=== PATIENT | male | born 1995 | race Asian ===

== ENCOUNTER 2022-01-13 09:16 | Emergency (ER) | payer SELFPAY ==
[~2022-01-13] VITALS: Ht 175.3 cm; Wt 80.0 kg
[2022-01-13] MEDS ORDERED: ASPirin 81 mg TAB PO ONE (09:45)
[2022-01-13 09:53] LABS: Basophils # (auto) 0 10 ^3/uL (0-0.2); Basophils % (auto) 0.7 % (0.0-2.0); Eosinophils # (auto) 0.1 10 ^3/uL (0-0.8); Eosinophils % (auto) 1.6 % (0.0-7.0); Hematocrit 43.5 % (41.0-53.0); Hemoglobin 14.8 g/dL (13.5-17.5); Lymphocytes # (auto) 1.5 10 ^3/uL (0.4-5.4); Lymphocytes % (auto) 31.2 % (10.0-50.0); Mean Corpuscular Hemoglobin 29.2 pg (28.0-32.0); Mean Corpuscular Hgb Conc. 34.1 g/dL (32.0-36.0); Mean Corpuscular Volume 85.6 fL (80.0-100.0); Monocytes # (auto) 0.2 10 ^3/uL (0-1.3); Monocytes % (auto) 4.3 % (0.0-12.0); Neutrophils # (auto) 2.9 10 ^3/uL (1.6-8.6); Neutrophils % (auto) 62.2 % (37.0-80.0); Red Blood Cells 5.08 10^6/uL (4.5-5.90); Red Cell Distribution Width 13.4 % (11.8-14.3); White Blood Cell 4.7 10^3/uL (4.4-10.8)
[2022-01-13 10:07] LABS: Albumin 4.4 g/dL (3.4-5.0); Calcium 9.4 mg/dL (8.5-10.1); Magnesium 2.2 mg/dL (1.6-2.6)
[2022-01-13 10:17] LABS: BUN/Creatinine Ratio 20.2; Bilirubin, Total 0.3 mg/dL (0.2-1.0); Total Protein 7.6 g/dL (6.4-8.2)
[2022-01-13] MEDS ORDERED: TRAM-297 PO (12:45)
[2022-01-13 13:12] VITALS: BP 129/88
[2022-01-13 13:22] LABS: Alcohol, Urine < 3.0 mg/dL (0-10); Amphetamine Screen, Urine NEGATIVE (NEGATIVE); Barbiturate Scree,Urine NEGATIVE (NEGATIVE); Benzodiazephine Screen, Urine NEGATIVE (NEGATIVE); Cannabinoid Screen, Urine NEGATIVE (NEGATIVE); Cocaine Screen, Urine NEGATIVE (NEGATIVE); Opiate Scree,Urine NEGATIVE (NEGATIVE); Phencyclidine Screen, Urine NEGATIVE (NEGATIVE)
== END 2022-01-13 13:14 | disposition home or self-care (01) ==
LOC: ER 09:16
DX: R07.89 Other chest pain (principal); F12.10 Cannabis abuse, uncomplicated
CPT/HCPCS: 36415; 71046; 80053; 80307; 83735; 84484; 85025; 93005

== ENCOUNTER 2024-07-30 11:04 | Emergency (ER) | payer OTHER ==
[~2024-07-30] VITALS: Ht 170.2 cm; Wt 79.1 kg
[~2024-07-30 11:04] MED LIST: TRAM-297 PO
[2024-07-30] MEDS: TETANUS-DIPTH-ACEL PERTUSSIS 0.5ML SYR Tdap IM ONE (11:50)
[2024-07-30 11:51] VITALS: BP 130/80; PULSE 91; RESP 16; TEMP 98.2; O2SAT 98
--- NOTE | 2024-07-30 11:56 | DVH ---
XY R TIB FIB XRAY, INDICATION: dog bite R calf TECHNICAL DATA: Frontal and lateral views were obtained of the right leg. COMPARISON: None FINDINGS: There is no osseous abnormality. Soft tissues are normal. IMPRESSION: No acute fracture or dislocation.
[2024-07-30] MEDS ORDERED: IBUP-1456 PO (13:57)
[2024-07-30] MEDS ORDERED: BAC09TP TOP (13:57)
[2024-07-30] MEDS ORDERED: AUG875T PO (13:57)
--- NOTE | 2024-07-30 13:59 | ED.PDOC ---
History of Present Illness(SKN HPI Comments 29-year-old male brought in by self complaining of a dog bite to his right calf that occurred just prior to arrival. Patient denies any pain, redness, bleeding or discharge. He was unsure whether the dog was someone's pet. He denies any other injuries or symptoms. Chief Complaint: Animal Bite Time Seen by MD: 11:15 Primary Care Provider: NONE Allergies: Coded Allergies: NO KNOWN ALLERGIES (Unverified , 01/13/22) Home Meds Active Scripts Bacitracin (Bacitracin Oint) 1 Applic Ap, 1 APPLIC TOP TID, #30 GM Apply to bite wound until healed. Prov:SABRINA HERNANDEZ MD 07/30/24 Ibuprofen (Ibuprofen) 800 Mg Tab, 1 TAB PO TID PRN, #30 TAB 1 Refill Prn pain. Take with food. Prov:SABRINA HERNANDEZ MD 07/30/24 Amoxicillin & Pot Clavulanate (AUGMENTIN TABLET) 875 Mg Tb, 875 MG PO BID for 7 Days, #14 TAB Prov:SABRINA HERNANDEZ MD 07/30/24 Tramadol Hcl (Ultram) 50 Mg Tab, 1 TAB PO Q6HR, #30 TAB Prov:CHACHA TOLENTINO MD 01/13/22 Mode of Arrival: Ambulatory Past Medical History Past Medical History (Other): PTSD, depression Surgical History: Denies all surgeries Family History Family History: Reviewed,noncontributory to illness, Family hx of heart divya Social History Smoker: Non-Smoker Alcohol: Rarely Drugs: Cocaine, Marijuana Lives In: Home All Other Systems: Reviewed and Negative (Comprehensive systems review obtained and negative except for what is stated in the HPI.) Physical Exam General Appearance: No Apparent Distress HEENT: Other (Pupils and face symmetric. Moist mucous membranes.) Neck: Full Range of Motion, Normal Inspection Respiratory: No Accessory Muscle Use, No Respiratory Distress Cardiovascular: No Edema, No JVD, Regular Rate/Rhythm Breast Exam: Deferred Gastrointestinal: Non Tender, Soft Genitalia: Deferred Pelvic: Deferred Rectal: Deferred Extremities: Non-tender, No pedal edema, Other (Right calf subcentimeter puncture wounds mid/lateral aspect without erythema, edema, visualized foreign body, bleeding or discharge) Neurologic: Alert (Oriented x4), Normal Affect, Normal Mood Cerebellar Function: NOT DONE Reflexes: NOT DONE Skin: Dry, Normal Color, Warm Lymphatic: NOT DONE Was a procedure done? Was a procedure done?: No Differential Diagnosis (INTG) Differential Diagnosis: Cellulitis, Laceration, Puncture Wound, Other (Pain foreign body, among others) X-Ray, Labs, Meds, VS Vital Signs Date Time Temp Pulse Resp B/P (MAP) Pulse Ox O2 Delivery O2 Flow Rate FiO2 07/30/24 11:51 91 16 98 Room Air 07/30/24 11:51 98.2 91 16 130/80 (97) 98 98.2 07/30/24 11:23 98.2 91 16 130/80 (97) 98 98.2 Current Medications Medications (Trade) Dose Ordered Sig/Kristen Route Start Time Stop Time Status Last Admin Diphtheria/ Tetanus/Acell Pertussis (Boostrix T-Dap) 0.5 ml ONCE ONCE IM 07/30/24 11:15 07/30/24 11:16 DC 07/30/24 11:50 X-Ray, Labs, Meds, VS Comment 29-year-old male with a history of PTSD and depression complaining of a dog bite to the right calf Vitals normal Exam remarkable for puncture wounds to the right mid calf area without erythema, edema, visualized foreign body or bony deformity Right tib-fib x-rays independently interpreted by me: No acute fracture or dislocation. No radiopaque foreign body. Patient denied pain. Patient treated with the following in the ED: Tdap 0.5 mL IM, wound cleansing, bacitracin and dressing. Patient appears stable for discharge with close outpatient follow-up for wound check with his primary doctor. Rx Augmentin, ibuprofen, bacitracin Time of 1ST Reevaluation: 13:55 Reevaluation 1ST: Improved Patient Education/Counseling: Diagnosis, Treatment, Need For Follow Up Family Education/Counseling: No Family Present Departure 1 Departure Time of Disposition: 13:55 Impression: Primary Impression: Dog bite of calf Qualified Codes: S81.851A - Open bite, right lower leg, initial encounter; W54.0XXA - Bitten by dog, initial encounter Disposition: HOME / SELF CARE / HOMELESS Condition: Stable Additional Instructions: X-rays did not show any broken bones or foreign body. I have prescribed pain medication and antibiotics to prevent infection. Follow-up with primary doctor in 2 days for wound check. Return to ER for redness, swelling, wound discharge, fever or any other concern. e-Prescriptions Bacitracin (Bacitracin Oint) 1 Applic Ap 1 APPLIC TOP TID, #30 GM Apply to bite wound until healed. Prov: SABRINA HERNANDEZ MD 07/30/24 Ibuprofen (Ibuprofen) 800 Mg Tab 1 TAB PO TID PRN, #30 TAB 1 Refill Prn pain. Take with food. Prov: SABRINA HERNANDEZ MD 07/30/24 Amoxicillin & Pot Clavulanate (AUGMENTIN TABLET) 875 Mg Tb 875 MG PO BID for 7 Days, #14 TAB Prov: SABRINA HERNANDEZ MD 07/30/24 Discharged With: Self Critical Care Note Critical Care Time?: No Stability Stability form required: No Heart Score Heart Score: Heart Score Response (Comments) Value History N/A 0 EKG N/A 0 Age N/A 0 Risk Factors N/A 0 Troponin N/A 0 Total 0 SABRINA HERNANDEZ MD July 30, 2024 13:59
== END 2024-07-30 14:24 | disposition home or self-care (01) ==
LOC: ER 11:11
DX: S81.831A Puncture wound without foreign body, right lower leg, initial encounter (principal); F12.90 Cannabis use, unspecified, uncomplicated; F32.A Depression, unspecified; Z79.899 Other long term (current) drug therapy; W54.0XXA Bitten by dog, initial encounter; Y93.89 Activity, other specified; Y92.89 Other specified places as the place of occurrence of the external cause; Y99.8 Other external cause status
CPT/HCPCS: 73590; 90471; 90715